=== PATIENT | male | born 1990 | race Caucasian/White ===

== ENCOUNTER 2021-08-06 14:47 | Emergency (ER) | payer BC ==
[~2021-08-06] VITALS: Ht 165.1 cm; Wt 97.1 kg
[2021-08-06] MEDS ORDERED: POTASSIUM CITR10 MEQ PO ×2 (15:15)
[2021-08-06] MEDS ORDERED: LEXAPRO10 MG PO (15:15)
[2021-08-06 20:26] LABS: BILIRUBIN Negative (Negative); BLOOD Negative (Negative); CLARITY Turbid (Clear); COLOR Yellow (Yellow); GLUCOSE Negative (Negative); KETONE Trace (Negative); LEUKO ESTERASE Negative (Negative); NITRITE Negative (Negative); PH 5.5 (4.5-8.0); SPECIFIC GRAVITY >= 1.030 (1.001-1.030)
[2021-08-06 20:33] LABS: BACTERIA 3+; MUCOUS TRACE; RBC 0-2 rbc/hpf (0-2); WBC 0-2 wbc/hpf (0-5)
[2021-08-06] MEDS ORDERED: Motrin,Rufen800 MG PO (22:16)
== END 2021-08-06 22:44 | disposition home or self-care (01) ==
LOC: ED 14:47
PROVIDERS: Physician Assistant
DX: S60.212A Contusion of left wrist, initial encounter (principal); S20.229A Contusion of unspecified back wall of thorax, initial encounter; S00.01XA Abrasion of scalp, initial encounter; Z91.018 Allergy to other foods; Z79.899 Other long term (current) drug therapy; W18.39XA Other fall on same level, initial encounter; Y93.89 Activity, other specified; Y92.89 Other specified places as the place of occurrence of the external cause; Y99.8 Other external cause status